=== PATIENT | female | born 1970 | race Asian ===

== ENCOUNTER 2018-11-19 23:42 | Emergency (ER) | payer OTHER ==
[~2018-11-19] VITALS: Ht 165.1 cm; Wt 71.7 kg
[2018-11-20] MEDS ORDERED: GLUCOTROL XL5 MG PO (00:14)
[2018-11-20] MEDS ORDERED: LANTUS100 UNITS/ SUB-Q (00:15)
== END 2018-11-20 02:54 | disposition home or self-care (01) ==
LOC: ED 23:42
DX: R10.12 Left upper quadrant pain (principal); E11.9 Type 2 diabetes mellitus without complications; Z79.4 Long term (current) use of insulin; Z79.899 Other long term (current) drug therapy
CPT/HCPCS: 80053; 81001; 83690; 84703; 85025; 99284

== ENCOUNTER 2019-11-18 07:56 | Emergency (ER) | payer OTHER ==
[~2019-11-18] VITALS: Ht 165.1 cm; Wt 71.7 kg
[~2019-11-18 07:56] MED LIST: GLUCOTROL XL5 MG PO; LANTUS100 UNITS/ SUB-Q
[2019-11-18] MEDS ORDERED: NOVOLOG FL100 UNIT/1 SUB-Q (08:45)
== END 2019-11-18 08:55 | disposition home or self-care (01) ==
LOC: ED 07:56
DX: L84 Corns and callosities (principal); R58 Hemorrhage, not elsewhere classified; E10.9 Type 1 diabetes mellitus without complications; Z79.84 Long term (current) use of oral hypoglycemic drugs
CPT/HCPCS: 99283

== ENCOUNTER 2021-01-22 10:41 | Emergency (ER) | payer OTHER ==
[~2021-01-22] VITALS: Ht 165.1 cm; Wt 71.7 kg
[~2021-01-22 10:41] MED LIST changes: +NOVOLOG FL100 UNIT/1 SUB-Q
[2021-01-22] MEDS ORDERED: DOXYCYCLINE MO100 MG PO (11:17)
[2021-01-22] MEDS ORDERED: METOPROLOL SUCC25 MG PO (11:17)
[2021-01-22] MEDS ORDERED: LISINOPRIL10 MG PO (11:17)
[2021-01-22] MEDS ORDERED: DOXYCYCLINE HY100 MG PO (12:07)
== END 2021-01-22 12:26 | disposition home or self-care (01) ==
LOC: ED 10:41
DX: L02.213 Cutaneous abscess of chest wall (principal); E11.9 Type 2 diabetes mellitus without complications; I10 Essential (primary) hypertension; Z79.899 Other long term (current) drug therapy; Z79.4 Long term (current) use of insulin
CPT/HCPCS: 10060; 99282-25

== ENCOUNTER 2021-02-06 16:28 | Emergency (ER) | payer OTHER ==
[~2021-02-06] VITALS: Ht 165.1 cm; Wt 71.7 kg
[~2021-02-06 16:28] MED LIST changes: +DOXYCYCLINE HY100 MG PO; +DOXYCYCLINE MO100 MG PO; +LISINOPRIL10 MG PO; +METOPROLOL SUCC25 MG PO
--- OUTSIDE RECORDS SUMMARY | 2021-02-06 16:32 | XMS ---
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 E.Gelacio VISIT COUNT (12 MO.) 3 Abdiel Leyva Isabelle [address] [place] [address] TOTAL 5 NOTE: Visits indicate total known visits. ED/UCC VISIT TRACKING (12 MO.) 02/06/2021 16:30 [facility]BER[facility] Garcia [place] TYPE: Emergency COMPLAINT: - WOUND PAIN 01/22/2021 10:44 HERBER[facility] Garcia [place] TYPE: Emergency COMPLAINT: - ABSCESS ISSUE DIAGNOSES: - Other intermediate school teacher (current) drug therapy - Cutaneous abscess of chest wall - Type 2 diabetes mellitus without complications - [facility] (current) use of insulin - Essential (primary) hypertension 09/13/2020 18:15 Abdiel LOPEZ [place] TYPE: Emergency DIAGNOSES: - Headache, unspecified - high blood pressure - Essential (primary) hypertension - Hypertension 08/20/2020 22:26 Abdiel [facility] [place] TYPE: Emergency DIAGNOSES: - Strain of muscle, fascia and tendon at neck level, subsequent encounter - Elevated blood-pressure reading, without diagnosis of hypertension - Generalized anxiety disorder - hypertension - Strain of other muscles, fascia and tendons at shoulder and upper arm level, left arm, subsequent encounter - Acute stress reaction 02/27/2020 20:31 Abdiel [facility] [place] TYPE: Emergency DIAGNOSES: - Local infection of the skin and subcutaneous tissue, unspecified - Blister (nonthermal), left foot, initial encounter - Foot wound INPATIENT VISIT TRACKING (12 MO.) No inpatient visits to display in this time frame [email or web address]
== END 2021-02-06 18:00 | disposition home or self-care (01) ==
LOC: ED 16:28
DX: L72.3 Sebaceous cyst (principal); E11.9 Type 2 diabetes mellitus without complications; I10 Essential (primary) hypertension; Z79.899 Other long term (current) drug therapy; Z79.4 Long term (current) use of insulin
CPT/HCPCS: 99282

== ENCOUNTER 2021-03-29 23:55 | Emergency (ER) | payer OTHER ==
[~2021-03-29] VITALS: Ht 165.1 cm; Wt 79.4 kg
[2021-03-30] MEDS ORDERED: CORLANOR7.5 MG PO (00:03)
== END 2021-03-30 03:32 | disposition home or self-care (01) ==
LOC: ED 23:55
DX: F43.9 Reaction to severe stress, unspecified (principal); E11.9 Type 2 diabetes mellitus without complications; I10 Essential (primary) hypertension; Z79.899 Other long term (current) drug therapy; Z79.4 Long term (current) use of insulin
CPT/HCPCS: 80053; 81001; 84443; 84703; 85025; 99284; G0480

== ENCOUNTER 2021-05-21 18:54 | Emergency (ER) | payer OTHER ==
[~2021-05-21] VITALS: Ht 165.1 cm; Wt 78.5 kg
[~2021-05-21 18:54] MED LIST changes: +CORLANOR7.5 MG PO
[2021-05-21] MEDS ORDERED: PREDNISOLONE ACE5 ML OPTH (19:17)
[2021-05-21] MEDS ORDERED: TRULICITY0.75 MG/0. SQ (19:17)
== END 2021-05-21 22:10 | disposition home or self-care (01) ==
LOC: ED 18:54
DX: E11.65 Type 2 diabetes mellitus with hyperglycemia (principal); I10 Essential (primary) hypertension; Z79.899 Other long term (current) drug therapy; Z79.4 Long term (current) use of insulin
CPT/HCPCS: 80053; 81001; 85025; 99284; J7030